=== PATIENT | male | born 1955 | race Caucasian/White ===

== ENCOUNTER 2023-10-07 09:23 | Outpatient (CLI) | payer MEDICARE, OTHER ==
[~2023-10-07 09:23] MED LIST: ATOR40TA72 PO; DUPI300S SUBCUT; ENTE0.5T12 PO; LEVO200T8 PO; LEVO25TA7 PO; MODA200T48 PO; OFAT20PE SQ; TERA5CAP4 PO; TRAM50TA2 PO
[2023-10-07] MEDS ORDERED: iohexol 300mg/ml 100ml inj. ONE (09:42)
== END 2023-10-07 23:59 | disposition home or self-care (01) ==
LOC: RAD 09:23
PROVIDERS: ATTEND Thoracic Surgery (Cardiothoracic Vascular Surgery)
DX: K44.9 Diaphragmatic hernia without obstruction or gangrene (principal); K40.90 Unilateral inguinal hernia, without obstruction or gangrene, not specified as recurrent; K42.9 Umbilical hernia without obstruction or gangrene; R18.8 Other ascites
CPT/HCPCS: 74177; J3490; Q9967

== ENCOUNTER → 2023-10-14 | Outpatient (CLI) | payer MEDICARE, OTHER | END | disposition home or self-care (01) | LOC: RAD 09:56 | PROVIDERS: ATTEND Thoracic Surgery (Cardiothoracic Vascular Surgery) | DX: J90 Pleural effusion, not elsewhere classified (principal); Z90.2 Acquired absence of lung [part of] | CPT/HCPCS: 71046 ==

== ENCOUNTER 2023-10-24 08:31 | Outpatient (CLI) | payer MEDICARE, OTHER | END 2023-10-24 23:59 | disposition home or self-care (01) | LOC: RAD 08:31 | PROVIDERS: ATTEND Thoracic Surgery (Cardiothoracic Vascular Surgery) | DX: I51.7 Cardiomegaly (principal); J90 Pleural effusion, not elsewhere classified | CPT/HCPCS: 71046 ==

== ENCOUNTER → 2023-10-31 | Outpatient (CLI) | payer MEDICARE, OTHER | END | disposition home or self-care (01) | LOC: RAD 14:42 | PROVIDERS: ATTEND Physician Assistant Surgical | DX: J90 Pleural effusion, not elsewhere classified (principal) | CPT/HCPCS: 71046 ==

== ENCOUNTER → 2023-11-21 | Outpatient (CLI) | payer MEDICARE, OTHER | END | disposition home or self-care (01) | LOC: RAD 09:59 | PROVIDERS: ATTEND Thoracic Surgery (Cardiothoracic Vascular Surgery) | DX: J98.4 Other disorders of lung (principal); J98.11 Atelectasis; J90 Pleural effusion, not elsewhere classified | CPT/HCPCS: 71046 ==

== ENCOUNTER 2024-05-11 12:43 | Inpatient (IN) | payer MEDICARE, OTHER ==
[~2024-05-11] VITALS: Ht 172.7 cm; Wt 94.0 kg
[2024-05-11 13:57] LABS: BASOPHILS % (AUTO) 0.2 % (0-1); HEMOGLOBIN 7.3 g/dl (14.0-17.9); LYMPHOCYTES # (AUTO) 1.6 X10'3 (1.1-4.8); MONOCYTES # (AUTO) 1.1 X10'3 (0-0.9); WHITE BLOOD COUNT 4.7 X10'3 (4.5-11.0)
[2024-05-11 13:59] LABS: EOSINOPHILS % (AUTO) 0.2 % (0-6); LYMPHOCYTES % (AUTO) 33.7 % (21-51); MEAN CORPUSCULAR HEMOGLOBIN 37.3 PG (27.0-31.0); MEAN CORPUSCULAR HGB CONC 34.6 g/dL (33.0-36.5); MONOCYTES % (AUTO) 23.6 % (2-12); NEUTROPHILS % (AUTO) 42.3 % (42-75); PLATELET COUNT 101 X10'3 (140-440); RED BLOOD COUNT 1.97 X10'6 (4.70-6.10); RED CELL DISTRIBUTION WIDTH 15.6 % (11.5-14.5)
[2024-05-11 14:03] LABS: HEMATOCRIT 21.2 % (42.0-52.0)
[2024-05-11 14:11] LABS: ALANINE AMINOTRANSFERASE 56 U/L (12-78); ALBUMIN 2.3 G/DL (3.4-5.0); ALBUMIN/GLOBULIN RATIO 0.5 (1.1-1.5); ALKALINE PHOSPHATASE 182 IU/L (46-116); ANION GAP 10 (8-16); ASPARTATE AMINO TRANSFERASE 71 U/L (10-37); BILIRUBIN,TOTAL 0.6 MG/DL (0.1-1.0); BLOOD UREA NITROGEN 27 MG/DL (7-18); BUN/CREATININE RATIO 16.1 (10.0-20.0); CALCIUM 8.6 MG/DL (8.5-10.1); CHLORIDE 99 MMOL/L (99-107); CREATININE 1.68 MG/DL (0.60-1.10); GLUCOSE 118 MG/DL (70-104); POTASSIUM 3.9 MMOL/L (3.5-5.1); SODIUM 136 MMOL/L (135-145); TOTAL CARBON DIOXIDE 27.5 MMOL/L (24-32); TOTAL PROTEIN 6.8 G/DL (6.4-8.2); eCRCL 39 ML/MIN; eGFR 40 ML/MIN
[2024-05-11 14:17] LABS: PRO BRAIN NATRIURETIC PEPTIDE 11297 PG/ML (0-125)
[2024-05-11 14:50] LABS: ANISOCYTOSIS 1+; PLATELET ESTIMATE DECREASED; TOTAL CELLS COUNTED 100
[2024-05-11 14:51] LABS: POLYCHROMASIA 1+
[2024-05-11 15:32] LABS: APTT 31 SECONDS (22-32); D-DIMER 2.15 MG/L FEU (0-0.50); INR 1.1 INR; PROTHROMBIN TIME 11.9 SECONDS (9.0-12.0)
[2024-05-11 15:46] LABS: FREE T4 (FREE THYROXINE) 0.77 NG/DL (0.73-1.40); THYROID STIMULATING HORMONE 35.01 ulU/ml (0.34-4.50)
[2024-05-11] MEDS ORDERED: FURO40TA4 PO ×2 (15:53)
[2024-05-11] MEDS ORDERED: FOLI1TAB27 PO (15:56)
[2024-05-11] MEDS ORDERED: MODA200T48 PO (15:56)
[2024-05-11] MEDS ORDERED: SYN0.088T PO (15:57)
[2024-05-11 16:07] LABS: BILIRUBIN,URINE NEGATIVE (Neg); CLARITY,URINE CLEAR (Clear); COLOR,URINE YELLOW (Yellow); GLUCOSE, URINE NEGATIVE (Neg); KETONES,URINE NEGATIVE (Neg); LEUKOCYTE ESTERASE ,URINE NEGATIVE (Neg); NITRITES, URINE NEGATIVE (Neg); OCCULT BLOOD,URINE NEGATIVE (Neg); PROTEIN,URINE TRACE mg/dl (Neg)
[2024-05-11 16:12] LABS: UA COLLECTION TYPE CLN CATCH MIDSTREAM
[2024-05-11 16:16] LABS: BACTERIA,URINE FEW /HPF (Neg); FINE GRANULAR CAST 0-3 /LPF (NEGATIVE); MUCUS STRANDS NONE SEEN /LPF (Neg); RBC,URINE NONE SEEN /HPF (0-2); SQUAMOUS EPITHELIAL CELL,UR FEW /LPF (FEW); WBC,URINE 0-4 /HPF (0-4)
[2024-05-11] MEDS: CefTRIAXone/D5W-Rocephin 1gm 50 ML IV ONE (16:46)
[2024-05-11] MEDS ORDERED: mag hydrox/Alum hydrox/simeth 30ml oral suspension PO PRN (17:35)
[2024-05-11] MEDS ORDERED: HYDROcodone/acetaminophen 5mg/325mg tablet PO PRN (17:35)
[2024-05-11] MEDS ORDERED: acetaminophen 325mg tablet PO PRN ×2 (17:35)
[2024-05-11] MEDS ORDERED: HYDROcodone/acetaminophen 10/325mg tab PO PRN (17:35)
[2024-05-11] MEDS ORDERED: ondansetron/PF 4mg/2ml inj IV PRN (17:35)
[2024-05-11] MEDS ORDERED: magnesium hydroxide 30ml (MOM) UD suspension PO PRN (17:35)
[2024-05-11] MEDS ORDERED: morphine 2 MG/ML inj. syringe IV PRN ×2 (17:35)
[2024-05-11] MEDS ORDERED: [UNRECOGNIZED DRUG - OTHER] SQ SCH (17:40)
[2024-05-11] MEDS: DUPILUMAB SUBCUT SCH (17:40)
[2024-05-11] MEDS: enoxaparin 100mg/ml syringe SUBCUT ONE (18:54)
[2024-05-11] MEDS: docusate sod 100mg capsule PO SCH (20:00)
[2024-05-11] MEDS: furosemide 20 MG/2 ML vial IV SCH (20:00)
[2024-05-11] MEDS: terazosin 5mg capsule PO SCH (20:42)
[2024-05-11 23:45] VITALS: BP 118/77; PULSE 109; RESP 15; TEMP 98.2; O2SAT 94
[2024-05-12] VITALS (17 sets, daily range): BP systolic 95–123; BP diastolic 60–77; PULSE 71–109; RESP 16–20; TEMP 97.3–98.9; O2SAT 90–96
[2024-05-12 06:22] LABS: BASOPHILS % (AUTO) 0.2 % (0-1); LYMPHOCYTES # (AUTO) 1.3 X10'3 (1.1-4.8); MEAN CORPUSCULAR HGB CONC 34.7 g/dL (33.0-36.5); NEUTROPHILS # (AUTO) 1.4 X10'3 (1.8-7.7); RED BLOOD COUNT 1.76 X10'6 (4.70-6.10)
[2024-05-12 06:27] LABS: EOSINOPHILS % (AUTO) 0.3 % (0-6); LYMPHOCYTES % (AUTO) 34.6 % (21-51); MEAN CORPUSCULAR HEMOGLOBIN 37.5 PG (27.0-31.0); MEAN CORPUSCULAR VOLUME 108.2 FL (78-98); MEAN PLATELET VOLUME 7.3 FL (7.4-10.4); MONOCYTES % (AUTO) 27.1 % (2-12); NEUTROPHILS % (AUTO) 37.8 % (42-75); PLATELET COUNT 77 X10'3 (140-440); RED CELL DISTRIBUTION WIDTH 15.4 % (11.5-14.5); WHITE BLOOD COUNT 3.8 X10'3 (4.5-11.0)
[2024-05-12 06:49] LABS: ANION GAP 8 (8-16); BLOOD UREA NITROGEN 27 MG/DL (7-18); BUN/CREATININE RATIO 17.5 (10.0-20.0); CALCIUM 7.8 MG/DL (8.5-10.1); CHLORIDE 102 MMOL/L (99-107); CHOL/HDL RATIO 2.7 (0.00-4.99); CHOLESTEROL 111 MG/DL (0-200); CREATININE 1.54 MG/DL (0.60-1.10); GLUCOSE 106 MG/DL (70-104); HDL CHOLESTEROL 41 MG/DL (35-60); LDL CHOLESTEROL 60 MG/DL (50-100); POTASSIUM 3.8 MMOL/L (3.5-5.1); SODIUM 137 MMOL/L (135-145); TRIGLYCERIDES 65 MG/DL (20-135); eCRCL 43 ML/MIN; eGFR 45 ML/MIN
[2024-05-12 07:23] LABS: HEMATOCRIT 19.1 % (42.0-52.0); HEMOGLOBIN 6.6 g/dl (14.0-17.9)
[2024-05-12 07:57] LABS: HYPERSEGMENTED NEUTROPHILS 1+; PLATELET ESTIMATE DECREASED; POLYCHROMASIA 1+; TOTAL CELLS COUNTED 100
[2024-05-12] MEDS ORDERED: levoTHYROXINE 100mcg tablet PO SCH (08:00)
[2024-05-12] MEDS ORDERED: levoTHYROXINE 25mcg tablet PO SCH (08:00)
[2024-05-12] MEDS: atorvastatin 20mg tablet PO SCH (08:00)
[2024-05-12] MEDS: aspirin 81mg, enteric-coated 1 TAB TABLET.DR PO SCH (08:00)
[2024-05-12] MEDS: folic acid 1mg tablet PO SCH (08:00)
[2024-05-12] MEDS: levoTHYROXINE 100mcg tablet PO SCH (09:20)
[2024-05-12] MEDS: modafinil 100mg tablet PO SCH (10:37)
[2024-05-12 19:10] LABS: EOSINOPHILS % (AUTO) 0.5 % (0-6); HEMOGLOBIN 8.8 g/dl (14.0-17.9); LYMPHOCYTES # (AUTO) 1.8 X10'3 (1.1-4.8); MEAN PLATELET VOLUME 6.9 FL (7.4-10.4); MONOCYTES # (AUTO) 1.2 X10'3 (0-0.9); MONOCYTES % (AUTO) 24.9 % (2-12); NEUTROPHILS # (AUTO) 1.8 X10'3 (1.8-7.7); NEUTROPHILS % (AUTO) 37.4 % (42-75); PLATELET COUNT 80 X10'3 (140-440)
[2024-05-12 19:11] LABS: BASOPHILS % (AUTO) 0.2 % (0-1); HEMATOCRIT 25.2 % (42.0-52.0); MEAN CORPUSCULAR HEMOGLOBIN 35.4 PG (27.0-31.0); MEAN CORPUSCULAR HGB CONC 34.9 g/dL (33.0-36.5); MEAN CORPUSCULAR VOLUME 101.5 FL (78-98); RED BLOOD COUNT 2.49 X10'6 (4.70-6.10); RED CELL DISTRIBUTION WIDTH 19.8 % (11.5-14.5); WHITE BLOOD COUNT 4.9 X10'3 (4.5-11.0)
[2024-05-13 02:00] VITALS: BP 111/71; PULSE 88; RESP 17; TEMP 98; O2SAT 94
[2024-05-13 06:53] LABS: EOSINOPHILS % (AUTO) 0.5 % (0-6); MONOCYTES # (AUTO) 1.2 X10'3 (0-0.9); NEUTROPHILS # (AUTO) 2.2 X10'3 (1.8-7.7)
[2024-05-13 06:55] LABS: BASOPHILS % (AUTO) 0.2 % (0-1); HEMATOCRIT 26.1 % (42.0-52.0); LYMPHOCYTES # (AUTO) 1.7 X10'3 (1.1-4.8); LYMPHOCYTES % (AUTO) 32.7 % (21-51); MEAN CORPUSCULAR HGB CONC 34.4 g/dL (33.0-36.5); MEAN CORPUSCULAR VOLUME 101.9 FL (78-98); MEAN PLATELET VOLUME 7.2 FL (7.4-10.4); MONOCYTES % (AUTO) 23.7 % (2-12); NEUTROPHILS % (AUTO) 42.9 % (42-75); PLATELET COUNT 72 X10'3 (140-440); RED BLOOD COUNT 2.57 X10'6 (4.70-6.10); RED CELL DISTRIBUTION WIDTH 20.6 % (11.5-14.5); WHITE BLOOD COUNT 5.2 X10'3 (4.5-11.0)
[2024-05-13 07:00] VITALS: BP 111/66; PULSE 88; RESP 14; TEMP 97.5; O2SAT 90
[2024-05-13 07:47] LABS: ALBUMIN 1.9 G/DL (3.4-5.0); ANION GAP 10 (8-16); BLOOD UREA NITROGEN 25 MG/DL (7-18); BUN/CREATININE RATIO 16.9 (10.0-20.0); CHLORIDE 103 MMOL/L (99-107); CREATININE 1.48 MG/DL (0.60-1.10); GLUCOSE 122 MG/DL (70-104); POTASSIUM 3.4 MMOL/L (3.5-5.1); SODIUM 138 MMOL/L (135-145); TOTAL CARBON DIOXIDE 25.4 MMOL/L (24-32); eCRCL 44 ML/MIN; eGFR 47 ML/MIN
[2024-05-13 09:21] LABS: TOTAL CELLS COUNTED 100
[2024-05-13 09:22] LABS: ANISOCYTOSIS 3+; PLATELET ESTIMATE DECREASED
[2024-05-13 09:23] LABS: HYPERSEGMENTED NEUTROPHILS 1+; POLYCHROMASIA FEW
[2024-05-13] MEDS ORDERED: ASPI-1071 PO (11:14)
[2024-05-13] MEDS ORDERED: LEVO100T9 PO (11:14)
[2024-05-13] MEDS ORDERED: METO-395 PO (11:14)
[2024-05-13] MEDS ORDERED: FURO40TA4 PO (11:14)
[2024-05-13 11:40] VITALS: BP 102/67; PULSE 88; RESP 19; TEMP 98.1; O2SAT 93
[2024-05-13] MEDS: potassium Cl 20 mEq SR tablet PO STA (11:44)
[2024-05-13] MEDS ORDERED: EMPA10TA PO (13:03)
[2024-05-13] MEDS ORDERED: diatrozoate meglu/diatrozoate sod (37% iodine) 120ML oral solution PO ONE (21:00)
== END 2024-05-13 16:05 | disposition home health service (06) | DRG 811 ==
LOC: ER 12:44 → ED HOLD 17:40 → PCU 3S 23:30
PROVIDERS: ADMIT Internal Medicine; ATTEND Internal Medicine
PROC: 30233N1 Transfusion of Nonautologous Red Blood Cells into Peripheral Vein, Percutaneous Approach (ICD-10-PCS; principal; 2024-05-12)
DX: D64.81 Anemia due to antineoplastic chemotherapy (principal); I21.A1 Myocardial infarction type 2; J18.9 Pneumonia, unspecified organism; C34.92 Malignant neoplasm of unspecified part of left bronchus or lung; N17.9 Acute kidney failure, unspecified; I13.0 Hypertensive heart and chronic kidney disease with heart failure and stage 1 through stage 4 chronic kidney disease, or unspecified chronic kidney disease; I50.9 Heart failure, unspecified; I27.81 Cor pulmonale (chronic); E03.9 Hypothyroidism, unspecified; D69.59 Other secondary thrombocytopenia; N18.30 Chronic kidney disease, stage 3 unspecified; E78.5 Hyperlipidemia, unspecified; T45.1X5A Adverse effect of antineoplastic and immunosuppressive drugs, initial encounter; Y92.89 Other specified places as the place of occurrence of the external cause; I25.2 Old myocardial infarction; Z79.82 Long term (current) use of aspirin; Z79.899 Other long term (current) drug therapy; Z87.891 Personal history of nicotine dependence
CPT/HCPCS: 36415; 36430; 71045; 80048; 80053; 80061; 81001; 82948; 83880; 84145; 84439; 84443; 84484; 85007; 85025; 85379; 85610; 85730; 86885; 86900; 86901; 86920; 86945; 87081; 93005; 93970; 96365; 97116; 97161; 97530; 99285; A4615; G0378; J0696; J1650; J1940; J7040; P9016